=== PATIENT | male | born 1965 | race Caucasian/White ===

== ENCOUNTER 2022-05-13 15:37 | Emergency (ER) | payer MEDICARE, OTHER ==
[~2022-05-13] VITALS: Ht 170.2 cm; Wt 77.0 kg
[2022-05-13] MEDS ORDERED: METF-1211 PO (15:50)
[2022-05-13] MEDS ORDERED: ISOS30TA92 PO (15:50)
[2022-05-13] MEDS ORDERED: TAMS-13 PO (15:50)
[2022-05-13] MEDS ORDERED: ATOR40TA28 PO (15:50)
[2022-05-13] MEDS ORDERED: METO25 PO (15:50)
[2022-05-13] MEDS ORDERED: ASPI-1450 PO (15:50)
[2022-05-13] MEDS ORDERED: LIDOCAINE 1% 10 ML VIAL ID ONE (16:45)
[2022-05-13 17:16] VITALS: BP 116/64
== END 2022-05-13 17:38 | disposition home or self-care (01) ==
LOC: EMS 15:48
DX: S61.412A Laceration without foreign body of left hand, initial encounter (principal); I10 Essential (primary) hypertension; R73.03 Prediabetes; F17.210 Nicotine dependence, cigarettes, uncomplicated; Z98.890 Other specified postprocedural states; W26.9XXA Contact with unspecified sharp object(s), initial encounter; Y93.89 Activity, other specified; Y92.89 Other specified places as the place of occurrence of the external cause; Y99.0 Civilian activity done for income or pay
CPT/HCPCS: 99282; 12001; J3490

== ENCOUNTER 2022-05-26 13:51 | Emergency (ER) | payer MEDICARE, OTHER ==
[~2022-05-26] VITALS: Ht 165.1 cm; Wt 68.2 kg
[~2022-05-26 13:51] MED LIST: ASPI-1450 PO; ATOR40TA28 PO; ISOS30TA92 PO; METF-1211 PO; METO25 PO; TAMS-13 PO
[2022-05-26 13:55] VITALS: BP 113/55
== END 2022-05-26 14:43 | disposition home or self-care (01) ==
LOC: EMS 13:55
DX: S61.412D Laceration without foreign body of left hand, subsequent encounter (principal); E11.9 Type 2 diabetes mellitus without complications; I10 Essential (primary) hypertension; F17.210 Nicotine dependence, cigarettes, uncomplicated; Z98.890 Other specified postprocedural states; X58.XXXD Exposure to other specified factors, subsequent encounter
CPT/HCPCS: 82962; 99282